=== PATIENT | female | born 1960 | race Hispanic/Latino ===

== ENCOUNTER 2018-07-06 17:19 | Emergency (ER) | payer BC ==
--- NOTE | 2018-07-06 18:07 | ED PDOC ---
Arrival/HPI - General Chief Complaint: Trauma Time Seen by Provider: 07/06/18 18:01 Historian: Patient - History of Present Illness Narrative History of Present Illness (Text): 07/06/18 18:04 58yo female with pmhx of hypertension who present to ED with complaint of left lower leg, right elbow, left thumb and right sided jaw pain s/p trauma one hour ago. Patient states she fell down 7stairs, while carrying a load of clothes. States she hit her right jaw against the basket she was carrying. States pain is more severe on the left lower leg. Denies LOC, headache, dizziness, nausea, vomiting, focal weakness, any other complaint. She came to ED herself, ambulatory. Past Medical History - Provider Review Nursing Documentation Reviewed: Yes - Infectious Disease Hx of Infectious Diseases: None - Reproductive Menopause: Yes - Psychiatric Hx Substance Use: No - Anesthesia Hx Anesthesia: Yes Hx Anesthesia Reactions: No Family/Social History - Physician Review Nursing Documentation Reviewed: Yes Family/Social History: Unknown Family HX Smoking Status: Unknown If Ever Smoked Hx Alcohol Use: No Hx Substance Use: No Allergies/Home Meds Allergies/Adverse Reactions: Allergies eggs Allergy (Uncoded 07/06/18 17:49) VOMITING hay fever Allergy (Uncoded 07/06/18 17:49) RASH Review of Systems - Physician Review All systems were reviewed & negative as marked: Yes - Review of Systems Constitutional: Normal Eyes: Normal ENT: Normal Respiratory: Normal Cardiovascular: Normal Gastrointestinal: Normal Genitourinary Female: Normal Musculoskeletal: Myalgias (Left lower leg, thumb and right elbow/jaw) Skin: Normal Neurological: Normal Endocrine: Normal Hemo/Lymphatic: Normal Psychiatric: Normal Physical Exam Vital Signs Reviewed: Yes Vital Signs Temp Pulse Resp BP Pulse Ox 07/06/18 20:01 98 F 58 L 16 154/80 H 98 07/06/18 17:43 98.1 F 66 18 161/84 H 99 07/06/18 17:20 98.1 F 66 18 161/84 H 99 Temperature: Afebrile Blood Pressure: Normal Pulse: Regular Respiratory Rate: Normal Appearance: Positive for: Well-Appearing, Non-Toxic, Comfortable, Other ( Morbidly obese) Pain Distress: None Mental Status: Positive for: Alert and Oriented X 3 - Systems Exam Head: Present: Atraumatic, Normocephalic Pupils: Present: PERRL Extroacular Muscles: Present: EOMI Conjunctiva: Present: Normal Mouth: Present: Moist Mucous Membranes Neck: Present: Normal Range of Motion Respiratory/Chest: Present: Clear to Auscultation, Good Air Exchange. No: Respiratory Distress, Accessory Muscle Use Cardiovascular: Present: Regular Rate and Rhythm, Normal S1, S2. No: Murmurs Abdomen: No: Tenderness, Distention, Peritoneal Signs Back: Present: Normal Inspection Upper Extremity: Present: Normal ROM, NORMAL PULSES, Tenderness (Right elbow with mild swelling noted), Swelling, Neurovascularly Intact. No: Cyanosis, Edema Lower Extremity: Present: Normal Inspection, NORMAL PULSES, Normal ROM, Tenderness (Left medial aspect of middle lower leg), Swelling (Left medial middle lower leg). No: Edema, Erythema (Ecchymosis noted over left medial lower leg) Neurological: Present: GCS=15, CN II-XII Intact, Speech Normal Skin: Present: Warm, Dry, Normal Color. No: Rashes Psychiatric: Present: Alert, Oriented x 3, Normal Insight, Normal Concentration Medical Decision Making ED Course and Treatment: 07/06/18 20:08 PT presented for stated history. She was neurologically intact in ED. She was ambulatory in ED Left tib/fib - No acute fracture right elbow - No acute fracture Left hand - No acute fracture Maxillofacial CT IMPRESSION: No acute fracture. Small focal skin thickening left anterior frontal scalp suggesting dermatologic lesion. Correlation with direct visualization findings suggested. Result was DW the pt. She was DC home with ibuprofen. Dio wrap applied. Advised to apply ice to area. Referred to her PMD. TRT ED for any new or worsening symptoms. - RAD Interpretation Radiology Orders: 07/06/18 18:01 MAXILLOFACIAL W/O CONTRAST [CT] Stat 07/06/18 18:02 ELBOW RIGHT 3 VIEWS ROUTINE [RAD] Stat TIBIA FIBULA LEFT [RAD] Stat 07/06/18 18:03 HAND LEFT THUMB [RAD] Stat - Medication Orders Current Medication Orders: Discontinued Medications Acetaminophen (Tylenol 325mg Tab) 650 mg PO STAT STA Stop: 07/06/18 18:04 Last Admin: 07/06/18 18:21 Dose: 650 mg MAR Pain/Vitals Document 07/06/18 18:21 SRE (Rec: 07/06/18 18:22 SRE [id number]) Pain Reassessment Is This A Pain ReAssessment? Yes Sleep Is patient sleeping during reassessment? No Presence of Pain Presence of Pain Yes Pain Scale Used Pain Scale Used Numeric Location Left, Right or Bilateral Left Pain Location Body Site Ankle Description Intermittent Intensity 6 Scale Used Numeric Disposition/Present on Arrival - Present on Arrival Any Indicators Present on Arrival: No History of DVT/PE: No History of Uncontrolled Diabetes: No Urinary Catheter: No History of Decub. Ulcer: No History Surgical Site Infection Following: None - Disposition Have Diagnosis and Disposition been Completed?: Yes Diagnosis: Leg sprain, Elbow pain, Facial contusion, Thumb pain Disposition: HOME/ ROUTINE Disposition Time: 20:15 Patient Plan: Discharge Condition: STABLE Discharge Instructions (ExitCare): Muscle and Bone Pain (DC) Additional Instructions: Apply ice to area and take Ibuprofen as needed for pain Follow up with your Doctor Return to ED for any new or worsening symptoms Prescriptions: Ibuprofen [Motrin Tab] 600 mg PO Q6 #15 tab Referrals: PCP,NO [Primary Care Provider] - Follow up with primary Yolanda Lamb MD [Medical Doctor] - Follow up with primary Forms: [employer] ([place])
[2018-07-06 20:02] VITALS: BP 154/80; PULSE 58; RESP 16; TEMP 98; O2SAT 98
--- NOTE | 2018-07-07 06:05 | CT ---
Date of service: 07/06/2018 PROCEDURE: CT MAXILLOFACIAL BONES WITHOUT CONTRAST HISTORY: left jaw pain s/p trauma COMPARISON: None available. TECHNIQUE: Contiguous axial CT images of the maxillofacial bones were obtained. Coronal and sagittal reformats were generated. Radiation dose: Total exam DLP = mGy-cm. This CT exam was performed using one or more of the following dose reduction techniques: Automated exposure control, adjustment of the mA and/or kV according to patient size, and/or use of iterative reconstruction technique. FINDINGS: NASAL BONES: Unremarkable. ORBITS: Unremarkable. PARANASAL SINUSES/ MASTOIDS: Clear. MAXILLA: Unremarkable. MANDIBLE/ TEMPOROMANDIBULAR JOINTS: Unremarkable. SKULL BASE: Unremarkable. TEMPORAL BONES: Middle ears and mastoid grossly unremarkable. OTHER FINDINGS: None. IMPRESSION: Unremarkable non contrast enhanced CT of the maxillofacial bones.
--- NOTE | 2018-07-07 10:42 | RAD ---
Date of service: 07/06/2018 PROCEDURE: Radiographs of the right elbow. HISTORY: elbow pain s/p trauma COMPARISON: No prior. FINDINGS: BONES: Normal. No fracture. JOINTS: Normal. No osteoarthritis. SOFT TISSUES: Normal. JOINT EFFUSION: None. OTHER FINDINGS: None. IMPRESSION: Unremarkable radiographs of the right elbow.
--- NOTE | 2018-07-07 10:44 | RAD ---
PROCEDURE: Left Hand and thumb Radiographs. HISTORY: thumb pain s/p trauma COMPARISON: None. FINDINGS: BONES: There is a small bony fragment adjacent to the 1st PIP joint. This could represent an avulsion fracture. This could be chronic. JOINTS: Normal. No osteoarthritic changes. SOFT TISSUES: Normal. OTHER FINDINGS: None. IMPRESSION: There is a small bony fragment adjacent to the 1st PIP joint. This could represent an avulsion fracture. This could be chronic.
--- NOTE | 2018-07-07 10:47 | RAD ---
Date of service: 07/06/2018 PROCEDURE: Radiographs of the left tibia and fibula. HISTORY: leg pain s/p trauma COMPARISON: None available. TECHNIQUE: Frontal and lateral views obtained. FINDINGS: BONES: Broad-based exostoses are seen in the medial aspect of the proximal tibia and the proximal fibula. There are no acute findings JOINT SPACES: Unremarkable. OTHER FINDINGS: None. IMPRESSION: No acute findings
== END 2018-07-06 20:17 | disposition home or self-care (01) ==
LOC: ED 17:19
DX: S00.83XA Contusion of other part of head, initial encounter (principal); S89.92XA Unspecified injury of left lower leg, initial encounter; W10.9XXA Fall (on) (from) unspecified stairs and steps, initial encounter; M79.645 Pain in left finger(s); M25.521 Pain in right elbow; I10 Essential (primary) hypertension

== ENCOUNTER 2019-04-01 07:46 | Outpatient (CLI) | payer BC | END 2019-04-01 07:47 | disposition home or self-care (01) | LOC: RAD 07:46 ==